=== PATIENT | male | born 1995 | race Caucasian/White ===

== ENCOUNTER 2016-12-21 01:55 | Emergency (ER) | payer OTHER ==
[~2016-12-21] VITALS: Ht 172.7 cm; Wt 86.2 kg
[2016-12-21 02:04] VITALS: BP 141/78
[2016-12-21] MEDS ORDERED: IBUPROFEN 400 MG TABLET ONE (02:41)
[2016-12-21] MEDS ORDERED: IBUPROFEN 400 MG TABLET PO ONE (03:00)
--- NOTE | 2016-12-21 03:00 | NUR ---
RIGHT WRIST PREFAB SPLINT APPLIED. +CMS NOTED.
== END 2016-12-21 03:31 ==
LOC: ER 01:57
DX: S63.501A Unspecified sprain of right wrist, initial encounter (principal); J45.909 Unspecified asthma, uncomplicated; W18.30XA Fall on same level, unspecified, initial encounter; Y93.02 Activity, running; Y92.143 Cell of prison as the place of occurrence of the external cause; Y99.8 Other external cause status
CPT/HCPCS: 29125; 73110; 99284; A4606; Z7610